=== PATIENT | male | born 1945 | race Caucasian/White ===

== ENCOUNTER 2017-04-14 07:27 | Emergency (ER) | payer MEDICARE, BC ==
[2017-04-14] MEDS ORDERED: Ketorolac INJ* 60 MG/2 ML VIAL IM ONE (08:36)
--- NOTE | 2017-04-14 09:15 | RAD ---
INDICATION: Left wrist pain COMPARISON: None TECHNIQUE: AP, lateral, and oblique views were obtained. FINDINGS: There is no acute fracture or dislocation. There is mild to moderate osteoarthritis but the radiocarpal joint. There is diffuse soft tissue swelling. There may be mild widening of scapholunate space suggesting ligaments injury. There are vascular calcifications. IMPRESSION: NO ACUTE FRACTURE. UNDERLYING OSTEOARTHRITIS. DIFFUSE SOFT TISSUE SWELLING. POSSIBLE SCAPHOLUNATE LIGAMENTOUS INJURY.
[2017-04-14 10:41] VITALS: BP 164/91
--- NOTE | 2017-04-15 19:13 | ED ---
Mariel Underwood Anna, scribed for Onel Sigala MD on 04/14/17 at 0818 . Adult Trauma - HPI Summary HPI Summary: Patient is a 71 y/o male coming to [facility] presenting with the sudden onset of left wrist pain that occurred after a fall two days ago. He describes the severity of the pain as 7/10. He fell when he missed a step on his dock. He extended both of his arms to break the fall and landed on both wrists and both knees. He reports that he did not hit his head, and he denies LOC. He has right knee pain at baseline and is on track for a right knee replacement. He is followed by [facility]. Patient medications were reviewed on this visit. - History of Current Complaint Chief Complaint: EDTraumaMultiple Stated Complaint: LT WRIST INJURY Time Seen by Provider: 04/14/17 07:39 Hx Obtained From: Patient Mechanism of Injury: Fall Loss of Consciousness: no loss of consciousness Onset/Duration: Started Days Ago, Still Present Onset Severity: Moderate Current Severity: Moderate Pain Intensity: 7 Pain Scale Used: 0-10 Numeric Location: Extremities - Allergy/Home Medications Allergies/Adverse Reactions: Allergies Allergy/AdvReac Type Severity Reaction Status Date / Time Diltiazem Allergy Severe Unknown Verified 04/14/17 07:30 Reaction Details Niacin [From Niaspan] Allergy Intermediate Flushing Verified 04/14/17 07:30 Penicillins Allergy Unknown Unknown Verified 04/14/17 07:30 Reaction Details Adhesive Tape Allergy Itching Verified 04/14/17 07:30 PMH/Surg Hx/FS Hx/Imm Hx Endocrine/Hematology History: Reports: Hx Thyroid Disease - ON MEDICATION FOR Denies: Hx Diabetes Cardiovascular History: Reports: Hx Hypertension - ON MEDICATION FOR, Other Cardiovascular Problems/Disorders - 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 Denies: Hx Congestive Heart Failure, Hx Pacemaker/ICD Respiratory History: Reports: Hx Chronic Obstructive Pulmonary Disease (COPD), Hx Pneumonia, Other Respiratory Problems/Disorders - hx of emphysema Musculoskeletal History: Reports: Hx Arthritis - RIGHT KNEE, Other Musculoskeletal History - SCIATICA PAIN BOTH LEGS Sensory History: Reports: Hx Cataracts, Hx Contacts or Glasses Denies: Hx Hearing Aid Opthamlomology History: Reports: Hx Cataracts, Hx Contacts or Glasses Psychiatric History: Denies: Hx Panic Disorder - Surgical History Surgery Procedure, Year, and Place: 1952 L WRIST LAC REPAIR [facility]. 1969 FACIAL RECONST [facility] 1974 L45 L5S1 LAMINECTOMIES [facility] 2007 L [facility]IP [facility]. 2010 R T[facility] HIP [facility]. 2012- RIGHT INGUINAL [facility] [place] [facility]. 2011 UMBICIAL HERNIA [facility] Hx Anesthesia Reactions: Yes - MORPHINE- NAUSEA- OK WHEN PREMEDICATED - Immunization History Date of Tetanus Vaccine: 2 wks ago Infectious Disease History: No Infectious Disease History: Reports: Hx Hepatitis - HEPATITIS C SUB CLINICAL AND B Denies: Traveled Outside the [place] in Last 30 Days - Family History Known Family History: Positive: Other - Arthritis - Social History Alcohol Use: Occasionally Substance Use Type: Reports: None Hx Tobacco Use: Yes Smoking Status (MU): Former Smoker Review of Systems Positive: Arthralgia Negative: Syncope All Other Systems Reviewed And Are Negative: Yes Physical Exam - Summary Physical Exam Summary: VITAL SIGNS: Reviewed. GENERAL: Patient is a well-developed and nourished male who is lying comfortable in the stretcher. Patient is not in any acute respiratory distress. HEAD AND FACE: No signs of trauma. No ecchymosis, hematomas or skull depressions. No sinus tenderness. EYES: PERRLA, EOMI x 2, No injected conjunctiva, no nystagmus. EARS: Hearing grossly intact. Ear canals and tympanic membranes are within normal limits. MOUTH: Oropharynx within normal limits. NECK: Supple, trachea is midline, no adenopathy, no JVD, no carotid bruit, no c- spine tenderness, neck with full ROM. CHEST: Symmetric, no tenderness at palpation LUNGS: Clear to auscultation bilaterally. No wheezing or crackles. CVS: Regular rate and rhythm, S1 and S2 present, no murmurs or gallops appreciated. ABDOMEN: Soft, non-tender. No signs of distention. No rebound no guarding, and no masses palpated. Bowel sounds are normal. EXTREMITIES: Left wrist with some swelling, tenderness, and reduced ROM. No cyanosis or clubbing. NEURO: Alert and oriented x 3. No acute neurological deficits. Speech is normal and follows commands. SKIN: Dry and warm Triage Information Reviewed: Yes Vital Signs On Initial Exam: Initial Vitals Temp Pulse Resp BP Pulse Ox 97.5 F 73 16 153/79 96 04/14/17 07:31 04/14/17 07:31 04/14/17 07:31 04/14/17 07:31 04/14/17 07:31 Vital Signs Reviewed: Yes - Belcher Coma Scale Coma Scale Total: 15 Diagnostics - Vital Signs Vital Signs Temp Pulse Resp BP Pulse Ox 04/14/17 07:31 97.5 F 73 16 153/79 96 - Laboratory Lab Statement: Any lab studies that have been ordered have been reviewed, and results considered in the medical decision making process. - Radiology Left Wrist XR Xray Interpretation: Positive (See Comments) Radiology Interpretation Completed By: Radiologist - IMPRESSION: NO ACUTE FRACTURE. UNDERLYING OSTEOARTHRITIS. DIFFUSE SOFT TISSUE SWELLING. POSSIBLE SCAPHOLUNATE LIGAMENTOUS INJURY. Re-Evaluation - Re-Evaluation First Eval Re-Evaluation Time: 10:01 Comment: Discussed results and plan of care with patient. Patient verbalizes understanding and is agreeable with plan. Adult Trauma Course/Dx - Course Assessment/Plan: XR of the wrist shows no fracture. Pt given Toradol for pain. We placed it in a wrist splint. After the splint, the pt is neurovascularly intact with good capillary refill. Discussed findings and test results with pt. He was instructed to return to the ED or f/u with orthopedics if pain increases or if he develops other symptoms. He understands and agrees. I discussed all the findings and test results with the patient. Patient was instructed to return to the emergency room immediately if any of the symptoms return or worsens. Plan of care was discussed with the patient and understands and agrees. All questions were answered at patient satisfaction. There were no further complaints or concerns. Lung exam before discharge: CTA B/L. Good air exchange. No wheezing or crackles heard. CVS: S1 and S2 present. No murmurs appreciated. Patient is alert and oriented x 3. Patient is hemodynamically stable. Patient will be discharged home with follow up PCP in the next 2-3 days - Diagnoses Differential Diagnosis/HQI/PQRI: Positive: Contusion(s), Fracture, Dislocation, Sprain, Strain Provider Diagnoses: Wrist sprain Discharge - Discharge Plan Condition: Stable Disposition: HOME Patient Education Materials: Wrist Sprain (ED) Referrals: Luz Maria Brizuela MD [Primary Care Provider] - Additional Instructions: Follow up with primary care physician in 2-3 days. Return to ED for new or worsening symptoms. The documentation as recorded by the Mariel kinsey Anna accurately reflects the service I personally performed and the decisions made by me, Onel Sigala MD.
== END 2017-04-14 10:41 | disposition home or self-care (01) ==
LOC: ED 07:27
DX: S63.502A Unspecified sprain of left wrist, initial encounter (principal); E07.9 Disorder of thyroid, unspecified; I10 Essential (primary) hypertension; J44.9 Chronic obstructive pulmonary disease, unspecified; Z87.891 Personal history of nicotine dependence; W10.9XXA Fall (on) (from) unspecified stairs and steps, initial encounter; Y92.89 Other specified places as the place of occurrence of the external cause; Z88.0 Allergy status to penicillin
CPT/HCPCS: 99282; J1885

== ENCOUNTER 2017-07-05 09:14 | Emergency (ER) | payer MEDICARE, BC ==
[2017-07-05 09:23] VITALS: BP 142/82
--- NOTE | 2017-07-05 09:37 | UC ---
Hand/Wrist HPI - HPI Summary HPI Summary: FELL 04/14/17. WENT TO [place] WITH LEFT WRIST PAIN. HAD NEGATIVE XRAYS AND PAIN HAS NOW RESOLVED. SINCE THE FALL PT HAS HAD INTERMITTENT RIGHT WRIST PAIN AND SWELLING. 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 - History Of Current Complaint Chief Complaint: UCUpperExtremity Stated Complaint: WRIST INJURY Time Seen by Provider: 07/05/17 09:27 Hx Obtained From: Patient Onset/Duration: Gradual Onset, Lasting Weeks, Still Present Severity Initially: Moderate Severity Currently: Moderate Pain Intensity: 3 Pain Scale Used: 0-10 Numeric Character Of Pain: Aching Aggravating Factor(s): Movement Alleviating: Nothing Associated Signs And Symptoms: Positive: Swelling, Redness Related History: Dominant Hand Right - Allergies/Home Medications Allergies/Adverse Reactions: Allergies Allergy/AdvReac Type Severity Reaction Status Date / Time Diltiazem Allergy Severe Unknown Verified 07/05/17 09:24 Reaction Details Niacin [From Niaspan] Allergy Intermediate Flushing Verified 07/05/17 09:24 Penicillins Allergy Unknown Unknown Verified 07/05/17 09:24 Reaction Details Adhesive Tape Allergy Itching Verified 07/05/17 09:24 PMH/Surg Hx/FS Hx/Imm Hx Endocrine History: Hypothyroidism Cardiovascular History: Hypertension Respiratory History: COPD Other History Of: Hepatitis B, Hepatitis C - Surgical History Surgical History: Yes Surgery Procedure, Year, and Place: 1953 L WRIST LAC REPAIR [facility]. 1969 FACIAL RECONST [facility] 1974 L45 L5S1 LAMINECTOMIES [facility] 2007 L [facility]. 2009 R TOTAL HIP [facility]. 2012- RIGHT INGUINAL [facility]. 2011 UMBICIAL [facility]ERNIA [place] - Family History Known Family History: Positive: Hypertension, Other - Arthritis - Social History Alcohol Use: Occasionally Substance Use Type: None Smoking Status (MU): Former Smoker When Did the Patient Quit Smoking/Using Tobacco: quit 1993 - Immunization History Most Recent Influenza Vaccination: 2012 Most Recent Tetanus Shot: unk Most Recent Pneumonia Vaccination: unk Review of Systems Constitutional: Negative Respiratory: Negative Cardiovascular: Negative Gastrointestinal: Negative Musculoskeletal: Arthralgia, Decreased ROM, Edema All Other Systems Reviewed And Are Negative: Yes Physical Exam Triage Information Reviewed: Yes Appearance: Well-Appearing, No Pain Distress, Well-Nourished Vital Signs: Initial Vital Signs Temp 98.5 F 07/05/17 09:16 Pulse 62 07/05/17 09:16 Resp 18 07/05/17 09:16 BP 142/82 07/05/17 09:16 Pulse Ox 99 07/05/17 09:16 Vital Signs Reviewed: Yes Eyes: Positive: Conjunctiva Clear ENT: Positive: Hearing grossly normal Neck: Positive: Supple Respiratory: Positive: No respiratory distress, No accessory muscle use Cardiovascular: Positive: Pulses Normal Abdomen Description: Positive: Soft Musculoskeletal: Positive: ROM Limited @ - RIGHT WRIST, Edema @ - RIGHT WRIST, Other: - TTP DIFFUSELY OVER RIGHT WRIST Neurological: Positive: Alert Psychological: Positive: Age Appropriate Behavior Skin: Negative: rashes Diagnostics - Radiology RIGHT WRIST XRAY Xray Interpretation: Positive (See Comments) - OSTEOARTHRITIS. NO ACUTE OSSEOUS INJURY. Radiology Interpretation Completed By: Radiologist Hand/Wrist Course/Dx - Differential Dx/Diagnosis Provider Diagnoses: RIGHT WRIST OSTEOARTHRITIS Discharge - Discharge Plan Condition: Stable Disposition: HOME Patient Education Materials: Osteoarthritis (ED) Referrals: Johnson Busby MD [Medical Doctor] - If Needed Luz Maria Brizuela MD [Primary Care Provider] - If Needed Additional Instructions: RIGHT WRIST XRAY SHOWS OSTEOARTHRITIS BUT NO FRACTURE. YOUR SYMPTOMS MAY BE EXACERBATED BY REPETITIVE MOTION AND USE OF YOUR WRIST. WEAR THE SPLINT AT NIGHT WHILE SLEEPING AND DURING THE DAY ABLE TO REDUCE DEMAND ON THE JOINT. OTC NSAIDS NEEDED FOR DISCOMFORT. FOLLOW-UP WITH ORTHO IF YOU ARE NOT IMPROVING.
--- NOTE | 2017-07-05 09:53 | RAD ---
HISTORY: Remote fall, persistent right wrist pain COMPARISONS: None VIEWS: 3, Frontal, lateral, and oblique views of the right wrist FINDINGS: BONE DENSITY: Normal. BONES: There is no displaced fracture. JOINTS: There is osteoarthritis of the scaphoid-trapezium articulation. ALIGNMENT: There is no dislocation. SOFT TISSUES: Unremarkable. OTHER FINDINGS: None. IMPRESSION: OSTEOARTHRITIS. NO ACUTE OSSEOUS INJURY. IF SYMPTOMS PERSIST, RECOMMEND REPEAT IMAGING.
== END 2017-07-05 10:19 | disposition home or self-care (01) ==
LOC: UCEAST 09:14
DX: M19.031 Primary osteoarthritis, right wrist (principal); E03.9 Hypothyroidism, unspecified; I10 Essential (primary) hypertension; J44.9 Chronic obstructive pulmonary disease, unspecified; Z87.891 Personal history of nicotine dependence; Z96.643 Presence of artificial hip joint, bilateral; Z88.0 Allergy status to penicillin; Z88.8 Allergy status to other drugs, medicaments and biological substances
CPT/HCPCS: 99211; G0463

== ENCOUNTER 2018-08-26 08:58 | Emergency (ER) | payer MEDICARE, BC ==
--- OUTSIDE RECORDS SUMMARY | 2018-08-26 09:27 | XMS REPORT ---
:1945 External Reference #:[id number] Author Organization [email or web address] Address [address] [place] [address] [place] [address] Phone [phone] Care Team Providers Name Role Phone Luz Maria Brizuela MD Primary Care Physician Unavailable Payers Type Date Identification Numbers Payment Provider Subscriber Medicare Primary Policy Number: [id number] Medicare Lonny Lloyd PayID: [id number] [address] [place] [address] Medigap Part B Effective: 2012 Policy Number: BS [facility] Lonny Lloyd [id number] PayID: [id number] [address] [place] [address] Medigap Part B Expires: 2012 Policy Number: BS RODERICK Lloyd [id number] PayID: [id number] [address] [address] [place] [address] Problems Date Description Provider Status Onset: 04/25/2015 Sprain of medial collateral ligament of Johnson Busby M.D. Active knee Onset: 07/18/2015 Pes anserinus tendinitis and bursitis Johnson Busby M.D. Active Onset: 10/09/2015 Obstructive sleep apnea syndrome Nora Montez MD Active Onset: 10/09/2015 Chronic obstructive lung disease Nora Montez MD Active Onset: 10/09/2015 Obesity Nora Montez MD Active Onset: 04/02/2016 Acute sinusitis Nora Montez MD Active Onset: 06/07/2016 Knee pain Jeremías Aguilar MD Active Onset: 06/07/2016 Localized, primary osteoarthritis Jeremías Aguilar MD Active Onset: 04/10/2018 Acquired trigger finger Evan Kwon MD Active Family History Date Family Member(s) Problem(s) Comments General Chronic Obstructive Pulmonary Disease (COPD) Father of COPD Mother of COPD Siblings Sister w/COPD ; brother has Siblings 5 Social History Type Date Description Comments Marital Status Lives With 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 Cigarette Use Former Cigarette Smoker ETOH Use Rarely consumes alcohol Smoking Patient is a former smoker quit in 1993, 1PPD for 30yrs Recreational Drug Use Denies Drug Use Daily Caffeine Drinks tea Daily Caffeine Consumes on average 1 cup of hot tea per day Exercise Type/Frequency Exercises regularly Allergies, Adverse Reactions, Alerts Date Description Reaction Status Severity Comments 05/19/2014 Diltiazem red blisters - SJ synd active Severe 05/19/2014 Niaspan active 05/19/2014 Tape active 05/19/2014 Levaquin active 04/15/2017 Sulfa active 04/15/2017 Zolpidem active 04/15/2017 Animal active Hair,Mold,Yeast,Dust Medications Medication Date Status Form Strength Qnty SIG Indications Ordering Provider Prednisone 12/09 Active Tablets 10mg 42tab Take 30 MG s Daily For 1 Tc, Week, Then MD Take 20 MG Daily For 1 Week, Then Take 10 MG Daily For 1 Week (takes 1 tab prn) Nystatin 04/16 Active Suspension [id number] 180ml 5cc swish J44.9 t/ML and spit 4 Tc, times a day Multivitamins 04/01 Active Capsules 1 by mouth every day (not taking) Flomax 05/19 Active Capsules 0.4mg 14cap 2 by mouth s every day Ran Paulino M.D. Levoxyl Active Tablets 88mcg 90tab 1 qd every Unknown /0000 s morning Symbicort Active Aerosol 160-4.5mc 2 puffs one Unknown / g/Act time per day Amlodipine Active Tablets 5mg 1 by mouth Unknown Bes every day Proair HFA Active Aerosol 108(90Bas 1-2 puffs by Unknown /0000 e) mouth every mcg/Act 4 hours as needed Mucinex Active Tablets ER 1200mg 1 tab a day Unknown 12HR by mouth qd(taking 600 mg po twice daily) Hydrocodone-Malachi Active Tablets 5-325mg 1-2 tabs by Unknown taminophen mouth every 4- 6 hours as needed pain Diazepam Active Tablets 5mg 1 tab twice Unknown daily as needed Clotrimazole Active 10 mg humberto- Q 4 hrs via mucous membrane prn Neomycin/Polymy Active Solution 1% 4 drop in Unknown angelia/Hydrocortis ear four one (Otic) times a day Nystatin Active Cream [id number] topically Unknown t/GM twice a day as needed Nystatin-Triamc Active Cream 344315-8. apply twice Unknown inolone 1Unit/GM- a day as % needed rash Albuterol Active Nebulizer 0.63mg/3M one Unknown Sulfate L treatment 3 x daily as needed Fluticasone Active Suspension 50mcg/Act 1 sprays Unknown Propionate each nostril daily Magnesium Active 250 mg po Unknown daily Vitamin D-400 Active Tablets 400Unit 1 by mouth Unknown every day Vitamin C Active Tablets 500mg 1 by mouth every day Prednisone 04/16 Hx Tablets 10mg 42tab 30mg daily J44.9 s for 1 week, Tc, - 20mg daily 06/06 for 1 week, 10 mg daily for 1 week Zithromax Z-Guzman 04/02 Hx Tablets 250mg 6tabs 2 tabs J01.80 day#1, 1 tab Tc, - daily for 4 MD Daliresp 10/09 Hx Tablets 500mcg 30tab 1 tab by J44.9 s mouth every Tc, - day 06/06 [place] 07/18 Hx Tablets 5-325mg 60tab 1-2 by mouth s bid as Qi, - needed M.D. 06/06 Transderm-Scop 05/19 Hx Patches 1.5mg 8unit apply one Aditya 72HR s patch every D. Brand, - 72 hours M.D. 05/31 Amlodipine 05/19 Hx Tablets 2.5mg 90tab 1 by mouth Aditya Besylate s every day Ran Paulino - [place] 05/31 Ventolin HFA Hx Aerosol 108(90Bas 2 puffs four Unknown /0000 e) 2x a day as - mcg/Act needed 07/07 Diazepam Hx Tablets 5mg 2tabs 1 tab hs prn Unknown /0000 - 07/07 Nystatin Hx Suspension 562221Xyd 16oz 5 Unknown /0000 t/ML milliliters - four times a 07/07 day, swi and swallow Ipratropium Hx Solution 0.5-2.5(3 60uni 1 vial in Unknown [place]/Albuter /0000 )mg/3ML ts nebulizer ol Sulfate - three times 07/07 a day needed Clotrimazole Hx Humberto 10mg 70uni 1 humberto, 4 Unknown /0000 ts times daily - prn 07/07 Hydrocodone-Malachi Hx Tablets 5-500mg 30tab 1 tab by Unknown taminophen /0000 s mouth every - 4 hours as 07/07 needed Proair HFA Hx Aerosol 108(90Bas 1unit 2 puffs by Unknown /0000 e) s mouth every - mcg/Act 4 hours as 07/07 Ecotrin Low Hx Tablets DR 81mg 100ta 1 by mouth 3 Unknown Strength /0000 bs times per - week 04/17 Mucinex Maximum Hx Tablets ER 1200mg 20tab once a day Unknown Strength /0000 12HR s - 07/07 Multivitamins Hx Capsules 30cap 1 capsule Unknown /0000 s ana maria;y - 04/17 Magnesium Hx Tablets 250mg 1 by mouth Unknown /0000 every day - 04/14 Calcium Citrate Hx Tablets 250-200mg daily Unknown + D /0000 -Unit - 08/22 Vitamin E 00 Hx Capsules 400Unit 1 by mouth Unknown /0000 every day - 04/17 Vitamin C 00 Hx Tablets 500mg 1 by mouth Unknown /0000 every day - 04/14 Harvoni Hx Tablets 90-400mg 1 by mouth Unknown /0000 every day - 04/01 Vitamin D-400 / Hx Tablets 400Unit 1 by mouth Unknown /0000 every day - 04/14 Doxycycline Hx Capsules 100mg one tablet Unknown Hyclate /0000 twice daily - for 10 days. 05/13 Cheratussin ac Hx Solution 100-10mg/ 2 teaspoon Unknown /0000 5ML twice a day - as needed 05/13 cough. Lorazepam Hx Tablets 1mg 1/2 tablet Unknown /0000 by mouth at - bedtime as 05/13 needed /2016 Medications Administered in Office Medication Date Status Form Strength Qnty SIG Indications Ordering Provider Celestone 3 mg Administered Injection Evan and 3mg 018 MD Cher Inj, Administered Injection Aditya DWilliam Regadenoson, 017 [place] Paulino 0.1 MG Technetium TC Administered Injection Aditya DWilliam 99M 017 [place] Paulino Tetrofosmin, Per Unit Dose Up To 40 Millicuries Depomedrol Administered Injection Fnu 40MG 016 MD Jeff Depomedrol Administered Injection Johnson 80MG 014 [place] Busby Inj, Administered Injection Aditya DWilliam Regadenoson, 014 [place] Paulino 0.1 MG Technetium TC Administered Injection Aditya DWilliam 99M 014 [place] Paulino Tetrofosmin, Per Unit Dose Up To 40 Millicuries Depomedrol Administered Injection Johnson 80MG 013 [place] Busby Inj, Administered Injection Caleb Regadenoson, 012 [place], 0.1 MG M.DWilliam, FACC, FSCAI Technetium TC Administered Injection Caleb 99M 012 [place], TetrofosminMilton, FACC, Per Unit Dose FSCAI Up To 40 Millicuries Depomedrol Administered Injection Bains, Lien, 40MG 009 PA Immunizations CPT Code Status Date Vaccine Lot # [id number] Given 07/11/2009 Influenza Virus 3Yrs & Over 95840 Given 08/16/2008 Influenza Virus 3Yrs & Over 41833 Given 05/10/2008 Zoster (Zostavax) 12195 Given 09/08/2007 Influenza Virus 3Yrs & Over 72217 Given 09/01/2006 Influenza Virus 3Yrs & Over 86092 Given 09/01/2006 Influenza Virus 3Yrs & Over Vital Signs Date Vital Result Comment 07/29/2018 Height 71 inches 5'11" Heart Rate 64 /min BP Systolic 142 mmHg BP Diastolic 78 mmHg Body Temperature 97.8 F Pain Level 0 05/11/2018 Height 71 inches 5'11" Weight 245.12 lb Heart Rate 62 /min BP Systolic Sitting 150 mmHg Rue large cuff BP Diastolic Sitting 84 mmHg Rue large cuff Respiratory Rate 18 /min O2 % BldC Oximetry 96 % On Ra BMI (Body Mass Index) 34.2 kg/m2 04/10/2018 Height 71 inches 5'11" Weight 248.00 lb BP Systolic Sitting 148 mmHg BP Diastolic Sitting 82 mmHg Respiratory Rate 16 /min Body Temperature 97.9 F Pain Level 3 BMI (Body Mass Index) 34.6 kg/m2 06/06/2017 Height 71.5 inches 5'11.50" Weight 252.50 lb no shoes Heart Rate 66 /min BP Systolic Sitting 124 mmHg Lue lrg cuff BP Diastolic Sitting 86 mmHg Lue lrg cuff BP Systolic Standing 128 mmHg Lue lrg cuff BP Diastolic Standing 82 mmHg Lue lrg cuff Respiratory Rate 16 /min BMI (Body Mass Index) 34.7 kg/m2 Ejection Fraction 50-55% 05/27/2017-echo 05/14/2017 Height 71.5 inches 5'11.50" Weight 251.00 lb no shoes Heart Rate 76 /min BP Systolic 152 mmHg Rue lrg cuff BP Diastolic 84 mmHg Rue lrg cuff BP Systolic Sitting 148 mmHg Lue lrg cuff BP Diastolic Sitting 90 mmHg Lue lrg cuff BP Systolic Standing 142 mmHg Lue lrg cuff BP Diastolic Standing 86 mmHg Lue lrg cuff Respiratory Rate 18 /min BMI (Body Mass Index) 34.5 kg/m2 10/16/2016 Heart Rate 78 /min BP Systolic 138 mmHg BP Diastolic 78 mmHg Respiratory Rate 16 /min Body Temperature 97.8 F 10/01/2016 Heart Rate 74 /min Respiratory Rate 20 /min Body Temperature 97.9 F 09/30/2016 Height 71 inches 5'11" Weight 235.00 lb Heart Rate 72 /min BP Systolic 124 mmHg BP Diastolic 80 mmHg Respiratory Rate 18 /min Body Temperature 98.4 F BMI (Body Mass Index) 32.8 kg/m2 07/31/2016 Height 71 inches 5'11" Weight 246.00 lb Heart Rate 54 /min BP Systolic Sitting 138 mmHg BP Diastolic Sitting 79 mmHg Respiratory Rate 16 /min O2 % BldC Oximetry 98 % BMI (Body Mass Index) 34.3 kg/m2 06/07/2016 Height 71 inches 5'11" Weight 246.00 lb BP Systolic 153 mmHg BP Diastolic 92 mmHg BMI (Body Mass Index) 34.3 kg/m2 04/16/2016 Height 71 inches 5'11" Heart Rate 57 /min BP Systolic Sitting 136 mmHg BP Diastolic Sitting 74 mmHg Respiratory Rate 16 /min O2 % BldC Oximetry 97 % 04/02/2016 Height 71 inches 5'11" Weight 246.00 lb with shoes on Heart Rate 62 /min BP Systolic Sitting 138 mmHg BP Diastolic Sitting 76 mmHg Respiratory Rate 22 /min O2 % BldC Oximetry 97 % BMI (Body Mass Index) 34.3 kg/m2 10/09/2015 Height 71 inches 5'11" Weight 241.12 lb Heart Rate 57 /min BP Systolic Sitting 132 mmHg BP Diastolic Sitting 74 mmHg Respiratory Rate 18 /min O2 % BldC Oximetry 98 % BMI (Body Mass Index) 33.6 kg/m2 Neck Circumference in inches 17.5 10/04/2015 Height 72 inches 6'0" Heart Rate 64 /min BP Systolic Sitting 128 mmHg BP Diastolic Sitting 74 mmHg Respiratory Rate 16 /min 08/29/2015 Height 72 inches 6'0" Weight 245.00 lb Heart Rate 72 /min BP Systolic Sitting 138 mmHg BP Diastolic Sitting 90 mmHg Respiratory Rate 14 /min BMI (Body Mass Index) 33.2 kg/m2 08/23/2015 Height 72 inches 6'0" Weight 245.00 lb Heart Rate 84 /min BP Systolic Sitting 136 mmHg BP Diastolic Sitting 74 mmHg Respiratory Rate 14 /min BMI (Body Mass Index) 33.2 kg/m2 07/18/2015 Height 72 inches 6'0" Weight 245.00 lb Pain Level 3 BMI (Body Mass Index) 33.2 kg/m2 04/25/2015 Height 72 inches 6'0" Weight 245.00 lb Pain Level 0 BMI (Body Mass Index) 33.2 kg/m2 07/08/2014 Height 72 inches 6'0" Heart Rate 64 /min BP Systolic 131 mmHg BP Diastolic 75 mmHg Results Test Date Test Result H/L Range Note Laboratory test finding 03/31/2017 B-Type Natriuretic Peptide 85 pg/mL 1, 2 BNP Lyme Disease Serology Negative Negative 1, 3 Paraneoplastic Evaluation 09/01/2015 Paraneoplastic Ab Interp See Comment 4 Anti-Neuronal Nuclear Ab Type1 Negative titer <1:240 Reflex Added None. Anti-Neuronal Nuclear Ab Type2 Negative titer <1:240 Anti-Neuronal Nuclear Ab Type3 Negative titer <1:240 Anti-Glial/Neuronal Nuc Ab-1 A Negative titer <1:240 Purkinje Cell Cytoplasm Type 1 Negative titer <1:240 Purkinje Cell Cytoplasm Type 2 Negative titer <1:240 Purkinje Cell Cytoplasm Typ Tr Negative titer <1:240 Amphiphysin Antibody Negative titer <1:240 CRMP-5 IgG Antibody Negative titer <1:240 5 Anti-Striated Muscle Antibody Negative titer <1:120 Calcium Channel Binding Ab P/Q 0.00 nmol/L <=0.02 N Type Calcium Channel Binding 0.00 nmol/L <=0.03 ACh Receptor Muscle Binding Ab 0.00 nmol/L <=0.02 AChR Ganglionic Neuronal Ab 0.00 nmol/L <=0.02 Voltage-Gated Potassium Chann 0.00 nmol/L <=0.02 6 Laboratory test finding 09/01/2015 Free T4 (Free Thyroxine) 0.96 ng/mL 0.61-1.12 T3 Total 1.01 ng/mL 0.87-1.78 Laboratory test finding 09/01/2015 Erythrocyte Sed Rate 35 mm/Hr 0-40 Laboratory test finding 08/14/2015 Iron (Fe) 106 g/dL 50-212 TSH (Thyroid Stim Horm) 1.60 ?IU/mL 0.34-5.60 Ferritin 128.6 ng/mL 24-336 Vitamin B12 402 pg/mL 180-914 7 Comp Metabolic Panel 08/14/2015 Sodium 141 mmol/L 133-145 Potassium 4.8 mmol/L 3.5-5.0 Chloride 103 mmol/L 101-111 Co2 Carbon Dioxide 32 mmol/L 22-32 Anion Gap 6 mmol/L 2-11 Glucose 88 mg/dL 70-100 Blood Urea Nitrogen 18 mg/dL 6-24 Creatinine 1.24 mg/dL High 0.67-1.17 BUN/Creatinine Ratio 14.5 8-20 Calcium 9.9 mg/dL 8.6-10.3 Total Protein 6.5 g/dL 6.4-8.9 Albumin 3.8 g/dL 3.2-5.2 Globulin 2.7 g/dL 2-4 Albumin/Globulin Ratio 1.4 1-3 Total Bilirubin 1.00 mg/dL 0.2-1.0 Alkaline Phosphatase 61 U/L 34-104 Alt 33 U/L 7-52 Ast 26 U/L 13-39 Egfr Non- 57.5 >60 Egfr 73.9 >60 8 1 [id number] 2 >100 to <200 pg/mL: likely compensated congestive heart failure (CHF) 200 to 400 pg/mL: likely moderate CHF >400 pg/mL: likely moderate to severe CHF 3 Serologic response to B. burgdorferi infection is not detected, but cannot rule out early infection during which low or undetectable antibody levels to B. burgdorferi may be present. If clinically indicated, a new serum specimen should be submitted in 7-14 days. Test Performed by: [place] [address] 4 No informative autoantibodies were detected in this evaluation. However, a negative result does not exclude neurological autoimmunity with or without associated neoplasia. 5 CRMP-5 Titers lower than 1:240 may be detectable by recombinant CRMP-5 western blot analysis, available by request on stored serum and recommended in cases of chorea, vision loss, cranial neuropathy and myelopathy. Extramural clients contact [facility] Inquiry at to add-on CRMP-5-IgG Western Blot, Serum. Intramural Clients, please call the Neuroimmunology Lab at [phone]. 6 Test Performed by: [place] [id number] Auto Research Engineer: Nicanor Culver II, M.D., Ph.D. 7 Normal Range 180 to 914 Indeterminate Range 145 to 180 Deficient Range <145 8 Because ethnic data is not always readily available, this report includes an eGFR for both -Americans and non- Americans. The National Kidney Disease Education Program (NKDEP) does not endorse the use of the MDRD equation for patients that are not between the ages of 18 and 70, are , have extremes of body size, muscle mass, or nutritional status, or are non- or non-. According to the National Kidney Foundation, irrespective of diagnosis, the stage of the disease is based on the level of kidney function: Stage Description GFR(mL/min/1.73 m(2)) 1 Kidney damage with normal or decreased GFR 90 2 Kidney damage with mild decrease in GFR 60-89 3 Moderate decrease in GFR 30-59 4 Severe decrease in GFR 15-29 5 Kidney failure <15 (or dialysis) Procedures Date CPT Code Description Status 06/08/2018 37187 Diffusing Capacity Completed 06/08/2018 33250 Plethysmography Determination Lung Volumes & Per Airway Completed Resist 06/08/2018 83130 Pulmonary Stress Testing, Inc Measurement Heart Rate, Completed Oximetry 06/08/2018 83296 Pulmonary Function><Bronchodil Completed 04/10/2018 74582 Inject Tendon Sheath Or Ligament Aponeurosis Eg Plantar Completed Fascia 05/27/2017 49847 ECHO Transthorasic Realtime 2D W Doppler & Color Flow Completed Hosp 05/27/2017 11588 ECHO Transthoracic, Real-Time 2D With Doppler And Color Completed Flow 05/16/2017 52740 Stress Test Completed 05/16/2017 75981 Myocardial Perfusion Imaging Tomographic (Spect) Completed Multiple Studies 05/14/2017 33650 EKG Tracing & Interpretation Completed 09/30/2016 25800 I&D Of Abscess Complicated Completed 06/07/201672481 Inject/Drain Joint/Bursa Major W/O US Completed 2015 05361 Polysomnography Sleep Staging 4+ Parameters W/Cpap Completed 07/08/2014 87771 Xray Knee 3 Views Completed 07/08/201473722 Inject/Drain Joint/Bursa Major W/O US Completed 06/08/2014 37894 Myocardial Perfusion Imaging Tomographic (Spect) Completed Multiple Studies 06/08/2014 63124 Stress Test Completed 07/22/201397471 Inject/Drain Joint/Bursa Major W/O US Completed 04/01/2013 57004 Xray Knee 3 Views Completed 04/01/2013 22291 Rad Exam; Knee, Ap&L Completed 09/08/2012 81688 Stress Test Completed 09/08/2012 92555 Myocardial Perfusion Imaging Tomographic (Spect) Completed Multiple Studies 08/31/2009 17461 Inject/Drain Joint/Bursa Major W/O US Completed 05/30/2009 35384 EKG Tracing & Interpretation Completed 05/02/2009 64854 Pulmonary Function><Bronchodilator Completed 05/10/2008 29095 EKG Tracing & Interpretation Completed 04/12/2008 20453 Noninvasive Ear Or Pulse Oximetry For Oxygen Saturation Completed 04/12/2008 03247 Noninvasive Ear Or Pulse Oximetry For Oxygen Saturation Completed 04/12/2008 64180 Inhalation TX For Acute Airway Obstruction Completed W/Nebulizer/Inhaler 04/12/2008 82330 EKG Tracing & Interpretation Completed 04/12/2008 18917 EKG Tracing & Interpretation Completed 04/06/2007 36713 EKG Tracing & Interpretation Completed 06/20/2006 56156 Remove Impacted Cerumen Completed Encounters Type Date Location Provider CPT E/M Dx Office Visit 05/11/2018 [facility] Sharon Werner, 91250 J44.9 2:30p [facility] NWilliamPWilliam G47.33 Office Visit 04/10/2018 1:30p [place] [address] M65.341 C.M.A. Office Visit 06/06/2017 2:45p [facility] Aditya Paulino, 52312 R94.31 [facility] [place] R06.02 Office Visit 05/14/2017 10:00a [facility] Aditya Paulino, 94524 R94.31 David Rose R06.02 R60.9 Office Visit 10/16/2016 1:15p [facility] [place], [address] L72.0 [facility] FACS Office Visit 07/31/2016 10:45a [facility] [place] [address] Z87.891 [facility] J44.9 G47.33 Z92.241 Office Visit 06/07/2016 1:40p [facility] Jeremías [place] [address] M25.561 [place] M17.11 Office Visit 04/16/2016 1:00p [facility] [place] [address] J44.9 [facility] G47.33 E66.09 Office Visit 04/02/2016 1:15p [facility] [place] [address] J44.9 Services Of [facility] [employer] [facility] G47.33 J01.80 Office Visit 10/09/2015 12:00p [facility] [place] [address] G47.33 Services Of [employer] [facility] J44.9 E66.09 Office Visit 10/04/2015 1:30p [facility] Keith Chilel, 38207 G47.33 [facility] [facility] M.D. Office Visit 08/29/2015 8:45a [facility] Keith Chilel, 45570 G47.10 [facility] [employer] [facility] M.D. G31.84 Office Visit 08/23/2015 9:00a [facility] Keith Chilel, 97721 G31.84 [facility] [employer] [facility] M.D. G47.10 M54.2 Office Visit 07/18/2015 1:30p [facility] Johnson Busby 53798 726.61 C.M.A. M.D. Office Visit 04/25/2015 10:00a [facility] Johnson Busby, 07318 844.1 C.M.A. M.D. Office Visit 07/08/2014 8:45a [facility] Johnson Busby, 33576 715.16 C.M.A. M.D. Office Visit 09/08/2013 9:58a [facility], Sharon Werner, 85472 466.0 Hospitalists N.P. 492.8 Office Visit 09/07/2013 9:57a [facility], Glendy Dunaway, 29319 466.0 Hospitalists M.D. 492.8 Office Visit 07/22/2013 2:45p [facility] [place] Busby 33459 726.61 C.M.A. M.D. Office Visit 04/01/2013 1:45p [facility] [place] Busby 75613 726.61 C.M.A. M.D. Office Visit 05/18/2010 9:30a [facility] [address] 716.95 C.M.A. Office Visit 05/14/2010 3:00p [place] [address] 716.95 C.M.A. Office Visit 08/16/2009 4:30p DO Not Use Angela Tucker M.D., 95381 491.21 [facility] FACP Office Visit 07/11/2009 11:15a DO Not Use Angela Tucker M.D., 08497 070.54 [facility] FACP 607.89 V04.81 Office Visit 06/21/2009 11:45a DO Not Use [employer] [facility] Angela Tucker 79045 380.10 M.D., FACP Office Visit 05/30/2009 1:15p DO Not Use [facility] [employer] [facility] Angela Tucker 80197 V70.0 M.D., FACP 241.9 496 401.1 070.54 Office Visit 05/02/2009 3:00p DO Not Use [facility] [facility] Angela Tucker M.D., 30786 496 FACP 702.0 558.9 719.46 272.4 Office Visit 02/13/2009 10:00a DO Not Use [employer] [facility] Angela Tucker, 64149 719.46 M.D., FACP 496 Office Visit 01/23/2009 11:45a DO Not Use [facility] [facility] Angela Tucker M.D., 19610 496 FACP 244.9 401.1 Office Visit 01/11/2009 11:00a DO Not Use Vicki Us, 93152 466.0 [facility] [facility] N.P. Office Visit 10/31/2008 11:30a DO Not Use Martha Miranda, 99605 719.46 [facility] M.D. Office Visit 08/16/2008 11:30a DO Not Use Angela Tucker M.D., 75442 272.0 [facility] [employer] [facility] FACP 401.1 786.05 V04.81 Office Visit 06/14/2008 11:00a DO Not Use [employer] [facility] Angela Tucker 59976 272.4 M.D., FACP 496 Office Visit 05/10/2008 1:45p DO Not Use [employer] [facility] Angela Tucker 24461 V70.0 M.D., FACP 272.0 786.05 401.1 V05.8 Office Visit 04/15/2008 11:00a DO Not Use [facility] [employer] [facility] Angela Tucker M.D., 34879 486 FACP 698.9 112.0 Office Visit 04/12/2008 10:00a DO Not Use [facility] [facility] Angela Tucker M.D., 44500 496 FACP 519.11 Office Visit 04/04/2008 11:00a DO Not Use [employer] [facility] Vicki Varn, 27561 466.0 N.P. 519.11 Office Visit 01/12/2008 2:30p DO Not Use [employer] [facility] Angelales Tucker, 83701 724.2 M.D., FACP Office Visit 08/10/2007 11:45a DO Not Use [facility] [facility] Angelales Tucker, 15459 070.54 M.D., FACP 709.9 Office Visit 04/06/2007 11:15a DO Not Use [facility] [facility] Angelales Tucker, 05160 401.1 M.D., FACP 272.0 715.95 Office Visit 02/06/2007 10:00a DO Not Use [employer] [facility] Angela Caitlin, 98388 466.0 M.D., FACP Office Visit 01/23/2007 11:15a DO Not Use [facility] [employer] [facility] Angela Caitlin, 10564 272.0 M.D., FACP 401.1 Office Visit 12/08/2006 9:15a DO Not Use [employer] [facility] Angelales Tucker, 30575 070.54 M.D., FACP 401.1 272.0 Office Visit 11/03/2006 12:00p DO Not Use [facility] [employer] [facility] Angela Caitlin, 21242 719.45 M.D., FACP 401.1 Office Visit 09/01/2006 10:45a DO Not Use [facility] [employer] [facility] Angela Caitlin, 56070 401.1 M.D., FACP 355.9 719.45 V04.81 Plan of Care Future Appointment(s):11/02/2018 3:30 pm - Nora Montez MD at [facility]
--- NOTE | 2018-08-26 09:40 | ED ---
Upper Extremity Pain - HPI Summary HPI Summary: Pt. is a 72 y.o male who presents to the ER for right wrist pain x 3 days ago. Pt. states he has had issues with his right wrist in the past. Past states last week he was scooting in a [place]enna when he developed pain in his right wrist. Pt. states that wrist became swollen and bruised. He denies fever, chills. Denies hx of gout and is not anticoagulated. Symptoms are mild in severity. Moving wrist makes sxs worse. Rest makes sxs better. - History of Current Complaint Chief Complaint: EDExtremityUpper Stated Complaint: RT WRIST INJURY Time Seen by Provider: 08/26/18 09:07 Hx Obtained From: Patient - Allergies/Home Medications Allergies/Adverse Reactions: Allergies Allergy/AdvReac Type Severity Reaction Status Date / Time Adhesive Tape Allergy Itching Verified 08/26/18 09:05 diltiazem Allergy Unknown Verified 08/26/18 09:15 Reaction Details niacin Allergy Flushing Verified 08/26/18 09:15 Penicillins Allergy Unknown Verified 08/26/18 09:15 Reaction Details PMH/Surg Hx/FS Hx/Imm Hx Previously Healthy: Yes Endocrine/Hematology History: Reports: Hx Thyroid Disease - ON MEDICATION FOR Denies: Hx Diabetes Cardiovascular History: Reports: Hx Hypertension - ON MEDICATION FOR, Other Cardiovascular Problems/Disorders - 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 Denies: Hx Congestive Heart Failure, Hx Pacemaker/ICD Respiratory History: Reports: Hx Chronic Obstructive Pulmonary Disease (COPD), Hx Pneumonia, Other Respiratory Problems/Disorders - hx of emphysema Denies: Hx Asthma GI History: Denies: Hx Ulcer Musculoskeletal History: Reports: Hx Arthritis - RIGHT KNEE, Other Musculoskeletal History - SCIATICA PAIN BOTH LEGS Sensory History: Reports: Hx Cataracts, Hx Contacts or Glasses Denies: Hx Hearing Aid Opthamlomology History: Reports: Hx Cataracts, Hx Contacts or Glasses Psychiatric History: Denies: Hx Panic Disorder - Surgical History Surgery Procedure, Year, and Place: 1952 L WRIST [facility]AC REPAIR [facility]. 1969 FACIAL REC[facility]ST [facility]. 1974 L45 L5S1 [facility]OMIES [facility]. 2007 L [facility] HIP [facility]. 2010 R [facility]. 2012- RIGHT [facility]GUINAL [facility]. 2011 UMBICIAL [facility] Hx Anesthesia Reactions: Yes - MORPHINE- NAUSEA- OK WHEN PREMEDICATED - Immunization History Date of Tetanus Vaccine: 2 wks ago Infectious Disease History: No Infectious Disease History: Reports: Hx Hepatitis - HEPATITIS C SUB CLINICAL AND B Denies: Hx Clostridium Difficile, Hx Human Immunodeficiency Virus (HIV), Hx of Known/Suspected MRSA, Hx Shingles, Hx Tuberculosis, Hx Known/Suspected VRE, Hx Known/Suspected VRSA, History Other Infectious Disease, Traveled Outside the [place] in Last 30 Days - Family History Known Family History: Positive: Hypertension, Other - Arthritis - Social History Occupation: Retired Lives: With Family Alcohol Use: Occasionally Substance Use Type: Reports: None Hx Tobacco Use: Yes Smoking Status (MU): Former Smoker Review of Systems Constitutional: Negative Negative: Fever, Chills Positive: Other - Pain and bruising to right wrist Positive: Bruising Positive: Paresthesia - Tingling right hand All Other Systems Reviewed And Are Negative: Yes Physical Exam Triage Information Reviewed: Yes Vital Signs On Initial Exam: Initial Vitals Temp Pulse Resp BP Pulse Ox 97.9 F 74 18 172/77 96 08/26/18 08:59 08/26/18 08:59 08/26/18 08:59 08/26/18 08:59 08/26/18 08:59 Vital Signs Reviewed: Yes Appearance: Positive: Well-Appearing - Pt. sitting in chair in NAD., Well- Nourished Skin: Positive: Warm, Dry Head/Face: Positive: Normal Head/Face Inspection Eyes: Positive: Normal, EOMI Neck: Positive: Supple Musculoskeletal: Positive: Other - Ecchymosis and mild edema to the distal wrist on the dorsal aspect extending to the hand. Snuff box tenderness. Good radial pulse. Full ROM of wrist with pain. No wounds or signs of infection. Neurological: Positive: Normal, CN Intact II-III Psychiatric: Positive: Affect/Mood Appropriate Diagnostics - Vital Signs Vital Signs Temp Pulse Resp BP Pulse Ox 08/26/18 08:59 97.9 F 74 18 172/77 96 - Laboratory Lab Statement: Any lab studies that have been ordered have been reviewed, and results considered in the medical decision making process. Course/Dx - Course Course Of Treatment: Pt. presenting for ongoing wrist pain and snuff box tenderness. No signs of infection on exam. Xray is negative for acute findings per radiology. Had ordered a pre made thumb spica given snuff box tenderness but pt. states he has one at home. Advised to wear. Advised to schedule a f.u apt. with ortho. for re-evaluation. To ice and elevate. Tylenol for pain as directed. Pt. understands and agrees with plan. - Diagnoses Differential Diagnosis/HQI/PQRI: Positive: Arthritis, Bursitis, Contusion, Fracture (Closed), Strain, Sprain Provider Diagnoses: Wrist sprain Discharge - Sign-Out/Discharge Documenting (check all that apply): Patient Departure - Discharge Plan Condition: Good Disposition: HOME Patient Education Materials: Wrist Sprain (ED) Referrals: Johnson Busby MD [Medical Doctor] - Luz Maria Brizuela MD [Primary Care Provider] - Additional Instructions: Call orthopedic clinic today and schedule an appointment for follow up Wear your wrist splint Ice and elevate Tylenol for pain as directed Return to ER if symptoms change or worsen - Billing Disposition and Condition Condition: GOOD Disposition: Home
--- NOTE | 2018-08-26 11:22 | RAD ---
HISTORY: injury, right wrist injury COMPARISONS: July 05, 2017 VIEWS: 3 , Frontal, lateral, and oblique views of the right wrist FINDINGS: BONE DENSITY: Normal. BONES: There is no displaced fracture. JOINTS: There is no arthropathy. 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 SOFT TISSUES: Unremarkable. OTHER FINDINGS: None. IMPRESSION: NO ACUTE OSSEOUS INJURY. IF SYMPTOMS PERSIST, RECOMMEND REPEAT IMAGING.
[2018-08-26 11:41] VITALS: BP 166/97
== END 2018-08-26 11:39 | disposition home or self-care (01) ==
LOC: ED 08:58
DX: S63.501A Unspecified sprain of right wrist, initial encounter (principal); X58.XXXA Exposure to other specified factors, initial encounter; Y92.9 Unspecified place or not applicable; Z87.891 Personal history of nicotine dependence; I10 Essential (primary) hypertension
CPT/HCPCS: 99282

== ENCOUNTER 2019-06-24 07:55 | Emergency (ER) | payer MEDICARE, BC ==
--- NOTE | 2019-06-24 08:22 | ED ---
Skin Complaint - HPI Summary HPI Summary: Pt. is a 73 y.o male who presents to the ER for evaluation of wound to his right lower leg. Pt. states last week he struck his right leg on a piece of gym equipment. Pt. states he has been doing wound care but noticed redness around wound the last few days that is spreading. Pt. denies fever, n/v. Is not a DM. Sxs are mild in severity. No current modifying factors. - History of Current Complaint Chief Complaint: EDRashSkinAbscess Time Seen by Provider: 06/24/19 08:04 Stated Complaint: R LEG PAIN PER PT Hx Obtained From: Patient Pain Intensity: 3 - Allergy/Home Medications Allergies/Adverse Reactions: Allergies Allergy/AdvReac Type Severity Reaction Status Date / Time Adhesive Tape Allergy Itching Verified 06/24/19 08:26 diltiazem Allergy Unknown Verified 06/24/19 08:26 Reaction Details fluticasone Allergy Shortness Verified 06/24/19 08:26 [From Advair Diskus] of Breath ipratropium Allergy Shortness Verified 06/24/19 08:26 of Breath levofloxacin [From Levaquin] Allergy Itching Verified 06/24/19 08:26 niacin Allergy Flushing Verified 06/24/19 08:26 salmeterol Allergy Shortness Verified 06/24/19 08:26 [From Advair Diskus] of Breath tiotropium Allergy Shortness Verified 06/24/19 08:26 [From Spiriva with of Breath HandiHaler] PMH/Surg Hx/FS Hx/Imm Hx Previously Healthy: Yes Endocrine/Hematology History: Reports: Hx Thyroid Disease - ON MEDICATION FOR Denies: Hx Diabetes Cardiovascular History: Reports: Hx Hypertension - ON MEDICATION FOR, Other Cardiovascular Problems/Disorders - 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 Denies: Hx Congestive Heart Failure, Hx Pacemaker/ICD Respiratory History: Reports: Hx Chronic Obstructive Pulmonary Disease (COPD), Hx Pneumonia, Other Respiratory Problems/Disorders - hx of emphysema Denies: Hx Asthma GI History: Denies: Hx Ulcer Musculoskeletal History: Reports: Hx Arthritis - RIGHT KNEE, Other Musculoskeletal History - SCIATICA PAIN BOTH LEGS Sensory History: Reports: Hx Cataracts, Hx Contacts or Glasses Denies: Hx Hearing Aid Opthamlomology History: Reports: Hx Cataracts, Hx Contacts or Glasses Psychiatric History: Denies: Hx Panic Disorder - Surgical History Surgery Procedure, Year, and Place: 1952 L WRIST [facility]AC REPAIR [facility]. 1969 FACIAL RECONST [facility] 1974 L45 L5S1 [facility]OMIES [facility] 2007 L [facility] HIP [facility]. 2009 R [facility]. 2012- [facility]AL [facility]. 2011 [facility] Hx Anesthesia Reactions: Yes - MORPHINE- NAUSEA- OK WHEN PREMEDICATED - Immunization History Date of Tetanus Vaccine: 2 wks ago Infectious Disease History: No Infectious Disease History: Reports: Hx Hepatitis - HEPATITIS C SUB CLINICAL AND B Denies: Hx Clostridium Difficile, Hx Human Immunodeficiency Virus (HIV), Hx of Known/Suspected MRSA, Hx Shingles, Hx Tuberculosis, Hx Known/Suspected VRE, Hx Known/Suspected VRSA, History Other Infectious Disease, Traveled Outside the in Last 30 Days - Family History Known Family History: Positive: Hypertension, Other - Arthritis, Non- Contributory - Social History Occupation: Retired Lives: With Family Alcohol Use: Occasionally Substance Use Type: Reports: None Hx Tobacco Use: Yes Smoking Status (MU): Former Smoker Review of Systems Constitutional: Negative Negative: Fever, Chills Gastrointestinal: Negative Negative: Abdominal Pain, Vomiting, Nausea Positive: Other - wound and redness to right lower leg. All Other Systems Reviewed And Are Negative: Yes Physical Exam Triage Information Reviewed: Yes Vital Signs On Initial Exam: Initial Vitals Temp Pulse Resp BP Pulse Ox 98.3 F 63 16 174/101 95 06/24/19 07:57 06/24/19 07:57 06/24/19 07:57 06/24/19 07:57 06/24/19 07:57 Vital Signs Reviewed: Yes Appearance: Positive: Well-Appearing - Pt. sitting on chair in NAD. Skin: Positive: Warm, Dry Head/Face: Positive: Normal Head/Face Inspection Eyes: Positive: Normal, EOMI Neck: Positive: Supple Musculoskeletal: Positive: Other - Healing skin tear to the anterior right lower leg with surrounding warm everythema. No drainage from wound or induration. No calf edema or pain. Neurological: Positive: Normal, CN Intact II-III Psychiatric: Positive: Affect/Mood Appropriate Diagnostics - Vital Signs Vital Signs Temp Pulse Resp BP Pulse Ox 06/24/19 07:57 98.3 F 63 16 174/101 95 - Laboratory Lab Statement: Any lab studies that have been ordered have been reviewed, and results considered in the medical decision making process. Course/Dx - Course Course Of Treatment: Pt. with mild cellulitis to right lower leg. Afebrile and well appearing. Will start on Keflex QID. Wound check in 48 hours. To elevate and apply warm compresses. Will return to ER for increased redness, fever, or if concerned. - Differential Diagnoses - Skin Complaint Differential Diagnoses: Abscess, Cellulitis, Contact Dermatitis - Diagnoses Provider Diagnoses: Cellulitis Discharge - Sign-Out/Discharge Documenting (check all that apply): Patient Departure Patient Received Moderate/Deep Sedation with Procedure: No - Discharge Plan Condition: Good Disposition: HOME Prescriptions: Cephalexin CAP* [Keflex CAP*] 500 mg PO QID #40 cap Patient Education Materials: Cellulitis (ED) Referrals: Luz Maria Brizuela MD [Primary Care Provider] - Additional Instructions: Follow up with PCP Friday for wound check Take antibiotic as directed Apply warm compresses and elevate leg Return to ER over the weekend for increased redness, swelling, pain, fever, vomiting or if concerned - Billing Disposition and Condition Condition: GOOD Disposition: Home
[2019-06-24 08:35] VITALS: BP 161/87
== END 2019-06-24 08:34 | disposition home or self-care (01) ==
LOC: ED 07:55
DX: L03.115 Cellulitis of right lower limb (principal); E07.9 Disorder of thyroid, unspecified; I10 Essential (primary) hypertension; J44.9 Chronic obstructive pulmonary disease, unspecified; Z87.891 Personal history of nicotine dependence; Z79.899 Other long term (current) drug therapy; Z88.1 Allergy status to other antibiotic agents; Z88.8 Allergy status to other drugs, medicaments and biological substances; Z91.048 Other nonmedicinal substance allergy status
CPT/HCPCS: 99281